=== PATIENT | male | born 1965 | race Hispanic/Latino ===

== ENCOUNTER 2024-12-29 06:04 | Observation (INO) | payer BC ==
[2024-12-25 10:33] VITALS: BP 160/90; PULSE 67; RESP 18; TEMP 97.7
--- NOTE | 2024-12-25 10:40 | NUR ---
RE: IS INITIAL IS INITIAL TEACHING DONE BY RT SENA DURING PREOP.
[~2024-12-29] VITALS: Ht 177.8 cm; Wt 117.7 kg
[2024-12-29] VITALS (29 sets, daily range): BP systolic 104–158; BP diastolic 80–92; PULSE 62–79; RESP 15–20; TEMP 97.1–98; O2SAT 95
[~2024-12-29 06:04] MED LIST: ASPI-1443 PO; ATOR10 PO; HYDR-4060 PO; IBUP-2077 PO; LOSA50TA64 PO
[2024-12-29 06:37] LABS: APPEARANCE,URINE CLEAR (CLEAR); BILIRUBIN,URINE NEGATIVE (NEGATIVE); COLOR,URINE LIGHT-YELLOW (YELLOW); GLUCOSE, URINE (UA) NEGATIVE (NEGATIVE); KETONES,URINE NEGATIVE (NEGATIVE); LEUKOCYTE ESTERASE ,URINE NEGATIVE Leu/uL (NEGATIVE); NITRATE,URINE NEGATIVE (NEGATIVE); PH,URINE 5.5 (5.0-8.0); PROTEIN,URINE NEGATIVE (NEGATIVE); UROBILINOGEN,URINE 0.2 mg/dL (0.2-1.0)
[2024-12-29 06:50] LABS: ADD UA MICROSCOPIC YES
[2024-12-29] MEDS: LACTATED RINGERS 1000ML 1,000 ML IV ONE (06:56)
[2024-12-29] MEDS: ceFAZolin SODIUM 2 GM VIAL ONE (06:56)
[2024-12-29] MEDS ORDERED: VANCOMYCIN 500MG+NS 100ML 100 ML IV ONE (07:04)
[2024-12-29] MEDS ORDERED: TRANEXAMIC ACID 1000MG/10ML ONE (07:04)
[2024-12-29 07:11] LABS: BACTERIA,URINE None Seen /HPF (None Seen); MUCUS,URINE Rare LPF (None Seen)
[2024-12-29] MEDS ORDERED: MIDAZOLAM HCL 1 MG/ML 2ML VIAL ONE (07:26)
[2024-12-29] MEDS ORDERED: proPOFol 10 MG/ML 20ML VIAL IV ONE (07:26)
[2024-12-29] MEDS ORDERED: FENTanyl CITRate PF 50 MCG/1 ML 2ML VIAL ONE ×3 (07:27→12:14)
[2024-12-29] MEDS ORDERED: rocuRONium bROMide 10MG/1ML 5ML VL ONE ×2 (08:08→09:46)
[2024-12-29] MEDS ORDERED: LIDOCAINE 2%-EPI 1:200,000 20 ML VIAL IJ ONE (08:14)
[2024-12-29] MEDS ORDERED: ROPivacaine 0.5% 5MG/ML 30ML ONE (08:14)
[2024-12-29] MEDS ORDERED: ketaMINE 50MG/ML SYRINGE 50 MG/ML DISP.SYRIN ONE (08:15)
[2024-12-29] MEDS ORDERED: phenylEPHRINE HCL 10 MG/ML 1ML VIAL IV ONE (08:17)
[2024-12-29] MEDS: acetaMINOPHEN 100 ML ONE (08:31)
[2024-12-29] MEDS ORDERED: MAGNESIUM SULFATE 1 GM/2 ML VIAL ONE (08:43)
[2024-12-29] MEDS: ceFAZolin SODIUM 1 GM VIAL ONE (09:00)
[2024-12-29] MEDS: VANCOMYCIN 500MG VIAL IJ ONE (09:00)
[2024-12-29] MEDS: ceFAZolin SODIUM 2 GM VIAL IVPB ONE (09:30)
[2024-12-29] MEDS: TRANEXAMIC ACID 1000MG/10ML IV ONE (11:30)
[2024-12-29] MEDS ORDERED: CALCIUM CARB 500MG PO PRN (12:00)
[2024-12-29] MEDS ORDERED: FERROUS FUMARATE 324 MG TABLET PO PRN (12:00)
[2024-12-29] MEDS ORDERED: ondanSETRON 4MG INJ IVP PRN (12:00)
[2024-12-29] MEDS ORDERED: TEMAZepam 15 MG CAPSULE PO PRN (12:00)
[2024-12-29] MEDS ORDERED: DiphenhydrAMINE HCL 50 MG/ML VIAL IVP PRN (12:00)
[2024-12-29] MEDS ORDERED: PoTASSium chl 10% ELIXIR 20MEQ 20 MEQ/15 ML UDCUP PO PRN (12:00)
[2024-12-29] MEDS ORDERED: PoTASSium chloRIDE 20MEQ/100ML 100 ML IV PRN (12:00)
[2024-12-29] MEDS ORDERED: GLYCOPYRROLATE 0.2 MG/ML 5 ML VIAL ONE (12:09)
[2024-12-29] MEDS ORDERED: NEOSTIGMINE METHYLSULFATE 1MG/ML IV ONE (12:10)
--- NOTE | 2024-12-29 12:10 | OP ---
Operative Note: DATE OF PROCEDURE: 12/29/24 SURGEON: KRIS KC MD LATHE SET UP OPERATOR: [Satish Lopez CFA] ANESTHESIA: [General anesthesia plus regional block] ANESTHESIOLOGIST/DIRECTOR OF CRITICAL CARE: [Omar Nava CRNA] PREOPERATIVE DIAGNOSIS: [Left knee osteoarthritis] POSTOPERATIVE DIAGNOSIS: [Same] IMPLANTS: [Biomet vanguard. Femur size 75 left PS. Tibia size 78 fixed cruciate. Tibial liner size 12 x 79/83. Patella size 40 x 10 asymmetric.] PROCEDURE: [Left total knee arthroplasty] ESTIMATED BLOOD LOSS: [100 mL] INDICATIONS: [59-year-old male with history of severe arthrosis to the left knee that has no longer responded to conservative treatment the patient being admitted for a total knee arthroplasty. Procedure understood, risks, benefits and possible complications and agreed signed the consent form] DESCRIPTION OF PROCEDURE: [After adequate general anesthesia was achieved and regional block obtained the left lower extremity was prepped and draped in the usual manner previous placement of the tourniquet in the proximal thigh. The extremity was then elevated and exsanguinated with an Esmarch bandage and the tourniquet inflated to 300 mmHg the Esmarch band been then removed. With the knee in flexion a longitudinal incision was then made in the anterior aspect through the skin followed by dissection of the subcutaneous tissue. A bone infusion needle was then inserted just medial to the tibial tuberosity into the tibial metaphysis and we injected a solution of 50 mL of normal saline mixed with 500 mg of vancomycin removing then the needle. A paramedian approach was then made with the Bovie cautery cutting through the quadriceps tendon, medial patellar retinaculum and patellar tendon retinaculum. The retropatellar tendon fat was then excised and the soft tissue elements of the tibia were elevated subperiosteally and retractors were applied medially and laterally . The anterior and posterior cruciate ligaments were resected. With the use of a drill a starting hole was made in the distal femur entering the intramedullary canal and then after removal of the drill an intramedullary guide was inserted with a 5 degree valgus block that touched the distal femur and to this the distal femoral cutting guide was then applied anteriorly and was secured to the distal femur with the use of pins. The intramedullary guide was then removed and with the use of the oscillating saw we proceeded to resect the distal femur removing the fragments and the guide. The femoral sizer was then applied dis tally and drill holes were made removing the sizer and the 4-in-1 cutting block was then inserted and the anterior, posterior and chamfer cuts were made removing the fragments and the block. The posterior cruciate ligament retractor was then inserted posterior to the tibia and this was brought forward proceeding then to apply the external tibial alignment guide and secured the pro ximal cutting guide to the tibia with the use of pins. With the use of the oscillating saw the proximal cut to the tibia tibia was made. The bone fragment was removed and the trial tibia plate was chosen. At this point the menisci were removed sharply and with the use of the curved osteotome the posterior osteophytes of the femur were removed. The PS cutting guide was then inserted and the intercondylar cut was made removing the fragment and the guide. The trial components were then inserted at the femur and tibia with a trial tibial liner bringing the knee into extension noticing that the patient had a very stable knee in flexion, extension and with valgus and varus stress. The knee was maintained in extension and the patella was then addressed proceeding to measure its thickness and then with the use of the oscillating saw we removed 10 mm from the articular surface and restored the height with application of a trial component after 3 peg holes were made. The patellofemoral ligament was removed and then the patellofemoral tracking was checked noticing to be tracking slightly lateral and for this reason a lateral release was performed bringing the tracking back to normal. At this moment all the components were removed, the tibia after the metaphyseal defect was created and while cement was being mixed on the back table we proceeded to irrigate the joint with antibiotic solution and then cover the entry to the femoral canal with a bone plug. Once the cement was ready we proceeded to apply it first to the tibia surface inserting the final component and then to the femoral surface and inserted the final component removing the excess cement and then applying a trial liner bringing the knee into extension for compression. Then we proceeded to irrigate the patella surface and dried it applying then bone cement and the final patellar component was inserted and was secured with application of a clamp. The joint was irrigated with a warm diluted Betadine solution while the cement dried followed by irrigation with antibiotic solution. The trial liner was removed as well as the patellar clamp and we proceeded then to irrigate the posterior aspect of the joint to remove all the remaining debris and the final tibial liner was inserted and locked against the tibia . The range of motion was checked and noticed to be adequate with full extension and flexion, no laxity in valgus or varus stress and with adequate patellofemoral tracking. The patient had no anterior or posterior drawer. After further irrigation the tour niquet was deflated and then hemostasis was obtained. After further irrigation the wound was then closed with approximation of the quadriceps tendon, patellar retinaculum and patellar tendon retinaculum with #1 Vicryl crossed stitches alternating with #1 and 2 Ethibond stitches, and closure of the subcutaneous tissue with 2-0 Monocryl inverted stitches and the skin was closed with 3-0 Monocryl subcuticularly. The wound was covered with a suction dressing followed by application of an Chris bandage for compression and the drapes were then removed transferring the patient to the hospital bed and taken to recovery room for follow-up by anesthesia. There were no complications during the procedure.] KRIS KC MD Dec 29, 2024 12:10
[2024-12-29] MEDS: MEPERIDINE-PF 50 MG/ML SYG ONE (12:58)
--- NOTE | 2024-12-29 15:20 | NUR ---
Pt is received from the recovery room after having a left knee arthroplasty. The patient is oriented to the room and the use of the call eugene. IV fluids are started at 100 ml's/hr. His is at the bedsides during the admission. PT denies pain. The left knee has a ranjit wrap in place over a BETTY dressing for the surgical incision. Ice is placed on the left knee. The patient is encouraged to call for any needs or concerns. The call eugene is left in reach and the bed in a low position.
[2024-12-29] MEDS: acetaMINOPHEN 500 MG TABLET PO SCH (15:49)
[2024-12-29] MEDS: 0.9%NACL 1000ML 1,000 ML IV SCH (15:50)
[2024-12-29] MEDS: GABApentin 100 MG CAPSULE PO SCH (15:50)
[2024-12-29] MEDS: ceFAZolin SODIUM 2 GM VIAL IVP SCH (16:59)
--- NOTE | 2024-12-29 17:30 | NUR ---
ORTHO COORDINATOR: TEACHING REGARDING DVT AND PNEUMONIA PREVENTION, PAIN EXPECTATIONS AND PAIN MANAGEMENT. PATIENT IN BED, AT BEDSIDE. B SCD SLEEVES IN PLACE AND FUNCTIONING. INCENTIVE SPIROMETER ON BEDSIDE TRAY. PATIENT RETURN DEMONSTRATED PROPER USE OF INCENTIVE SPIROMETER AND FOOT FLEXION/EXTENSION EXERCISES. PATIENT VERBALIZED INCORRECT FREQUENCY OF PERFORMING BREATHING EXERCISES. RE-EDUCATION PROVIDED. BETTY DRESSING INSTRUCTIONS/RATIONALE PROVIDED. CASSETTE FUNCTIONING, LIGHT FLASHING GREEN. ICE PACK TO SURGICAL INCISION. NUMERIC PAIN SCALE REVIEWED. PATIENT INSTRUCTED TO SET AN ALARM FOR EVERY FOUR HOURS AND PERFORM PAIN SELF ASSESSMENT. PATIENT IS TO ASSIGN A NUMERIC VALUE AND TYPE OF PAIN AND CALL PRIMARY NURSE SO APPROPRIATE MEDICATION CAN BE ADMINISTERED. PATIENT INTENDS TO DISCHARGE HOME WITH HOME HEALTH. HOME HEALTH PROCESS REVIEWED. SET EXPECTATION FOR PATIENT TO SHOWER TOMORROW, RATIONALE PROVIDED. PATIENT AND VERBALIZED UNDERSTANDING TO ALL INSTRUCTIONS. NO ADDITIONAL QUESTIONS/CONCERNS AT THIS TIME.
[2024-12-29] MEDS: OXYcodONE HCL 5 MG TAB PO PRN (17:53)
--- NOTE | 2024-12-29 17:56 | NUR ---
Pt has ambulated with PT and the assistance of a walker. He is medicated for pain 5/10 to the left knee. Pt has also voided.
[2024-12-29] MEDS: CYCLOBENZAPRINE HCL 10 MG TABLET PO PRN (19:02)
[2024-12-29] MEDS: ASPIRIN 81 MG EC TAB PO SCH (20:03)
[2024-12-29] MEDS: FAMOTIDINE 20MG TAB PO SCH (20:03)
[2024-12-29] MEDS: CeleCOXib 200 MG CAP PO SCH (20:03)
[2024-12-29] MEDS: LoSARTan 50 MG TABLET PO SCH (20:06)
[2024-12-29] MEDS: ketOROlac 15MG/ML VIAL (15MG/ML) IV PRN (21:13)
[2024-12-30] VITALS: BP 141/100; PULSE 91; RESP 20; TEMP 98.7
[2024-12-30 03:45] LABS: HEMATOCRIT 36.2 % (42-54); MEAN CORPUSCULAR HGB CONC 34.8 g/dL (32.0-36.0); MEAN CORPUSCULAR VOLUME 80.4 fL (79-99); RED BLOOD CELL COUNT(AUTO) 4.5 MIL/uL (4.50-6.20); RED CELL DISTRIBUTION WIDTH 12.7 % (11.0-15.5); WHITE BLOOD COUNT (AUTO) 12.5 K/uL (4.8-10.8)
[2024-12-30 04:00] VITALS: BP 151/90; PULSE 78; RESP 20; TEMP 97.7
[2024-12-30 04:00] LABS: POTASSIUM 3.8 mmol/L (3.5-5.1)
--- NOTE | 2024-12-30 06:24 | NUR ---
Patient up to chair. Tolerated well. Chris wrap removed.
[2024-12-30 07:49] VITALS: BP 149/98; PULSE 81; RESP 18; TEMP 98.1
[2024-12-30] MEDS: atorVAStatin 20 MG TABLET PO SCH (08:02)
[2024-12-30] MEDS: tamSULOsin HCL 0.4 MG CAP.ER.24H PO SCH (08:02)
[2024-12-30] MEDS: PoTASSium chloRIDE 20MEQ ER 20 MEQ ERTAB PO PRN (08:03)
--- NOTE | 2024-12-30 08:04 | PN ---
Ortho postop day one. This morning the patient is awake alert and oriented. is at the bedside. Patient reporting adequate pain control. He is seated in a chair alternating extension and flexion of the extremity on a footstool. The britney dressing is intact. The gastrocnemius a soft nontender. Negative Homans. While seated he is able to get to 0 and flexion to about 70. Distal neurovascular exam normal. Vital signs have been stable. Afebrile. Laboratory results reviewed. Noted to have a drop in hemoglobin and hematocrit as expected after TKA. Patient is currently asymptomatic. We will address per protocol as necessary. Operative findings discussed with the patient. Voiding on his own. Still yet to pass gas. Ambulated yesterday with the physical therapy. Pending further physical therapy this morning. Anticipated discharge goal is home health/PT. Assessment: Status post left TKA. Asymptomatic acute postoperative blood loss anemia addressed with protocol. Plan: Continue with Dr. Bhatti was TKA protocol and discharge planning. Asymptomatic acute postoperative blood loss anemia addressed with the protocol Vitals/Labs Vital Signs Date Time Temp Pulse Resp B/P (MAP) Pulse Ox O2 Delivery O2 Flow Rate FiO2 12/30/24 07:49 98.1 81 18 149/98 99 12/30/24 04:00 Room Air 12/29/24 20:00 0 21 Laboratory Tests 12/30/24 03:22 Medications Current Medications Cefazolin Sodium 2 gm STK-MED ONCE .ROUTE; Start 12/29/24 at 06:14; Stop 12/29/24 at 06:14; Status DC Lactated Ringer's 1,000 ml @ As Directed STK-MED ONCE IV Last administered on 12/29/24at 06:56; Start 12/29/24 at 06:14; Stop 12/29/24 at 06:14; Status DC Tranexamic Acid 1,000 mg STK-MED ONCE .ROUTE; Start 12/29/24 at 07:04; Stop 12/29/24 at 07:04; Status DC Cefazolin Sodium 1 gm STK-MED ONCE .ROUTE Last administered on 12/29/24at 09:00; Start 12/29/24 at 07:04; Stop 12/29/24 at 07:04; Status DC Vancomycin HCl 100 ml @ As Directed STK-MED ONCE IV; Start 12/29/24 at 07:04; Stop 12/29/24 at 07:04; Status DC Propofol 200 mg STK-MED ONCE IV; Start 12/29/24 at 07:26; Stop 12/29/24 at 07:26; Status DC Midazolam HCl 2 mg STK-MED ONCE .ROUTE; Start 12/29/24 at 07:26; Stop 12/29/24 at 07:26; Status DC Fentanyl Citrate 100 mcg STK-MED ONCE .ROUTE; Start 12/29/24 at 07:27; Stop 12/29/24 at 07:27; Status DC Rocuronium [place] 50 mg STK-MED ONCE .ROUTE; Start 12/29/24 at 08:08; Stop 12/29/24 at 08:08; Status DC Ropivacaine 150 mg STK-MED ONCE .ROUTE; Start 12/29/24 at 08:14; Stop 12/29/24 at 08:14; Status DC Lidocaine/ Epinephrine 20 ml STK-MED ONCE IJ; Start 12/29/24 at 08:14; Stop 12/29/24 at 08:14; Status DC Ketamine HCl 50 mg STK-MED ONCE .ROUTE; Start 12/29/24 at 08:15; Stop 12/29/24 at 08:15; Status DC Phenylephrine HCl 10 mg STK-MED ONCE IV; Start 12/29/24 at 08:17; Stop 12/29/24 at 08:18; Status DC Acetaminophen 100 ml @ As Directed STK-MED ONCE .ROUTE; Start 12/29/24 at 08:31; Stop 12/29/24 at 08:31; Status DC Magnesium Sulfate 1 gm STK-MED ONCE .ROUTE; Start 12/29/24 at 08:43; Stop 12/29/24 at 08:43; Status DC Rocuronium [place] 50 mg STK-MED ONCE .ROUTE; Start 12/29/24 at 09:46; Stop 12/29/24 at 09:46; Status DC Vancomycin HCl 500 mg STK-MED ONCE IJ Last administered on 12/29/24at 09:00; Start 12/29/24 at 09:00; Stop 12/29/24 at 10:30; Status DC Cefazolin Sodium 2 gm STK-MED ONCE IVPB Last administered on 12/29/24at 09:30; Start 12/29/24 at 09:30; Stop 12/29/24 at 10:34; Status DC Tranexamic Acid 1,000 mg STK-MED ONCE IV Last administered on 12/29/24at 09:30; Start 12/29/24 at 09:30; Stop 12/29/24 at 10:34; Status DC Fentanyl Citrate 100 mcg STK-MED ONCE .ROUTE; Start 12/29/24 at 11:28; Stop 12/29/24 at 11:28; Status DC Tranexamic Acid 1,000 mg STK-MED ONCE IV Last administered on 12/29/24at 11:30; Start 12/29/24 at 11:30; Stop 12/29/24 at 11:33; Status DC Sodium Chloride 1,000 ml @ 100 mls/hr Q10H IV Last administered on 12/29/24at 15:50; Start 12/29/24 at 12:00; Stop 12/30/24 at 11:59 Polyethylene Glycol 17 gm DAILY PO; Start 12/30/24 at 09:00; Stop 01/29/25 at 08:59 Bisacodyl 10 mg DAILY PRN RC; Start 01/01/25 at 12:00; Stop 01/31/25 at 11:59 Ketorolac Tromethamine 15 mg Q6H PRN IV Last administered on 12/29/24at 21:13; Start 12/29/24 at 12:00; Stop 01/03/25 at 11:59 Famotidine 20 mg BID PO Last administered on 12/29/24at 20:03; Start 12/29/24 at 21:00; Stop 01/28/25 at 20:59 Tamsulosin HCl 0.4 mg DAILY PO; Start 12/30/24 at 09:00; Stop 01/29/25 at 08:59 Ferrous Fumarate 324 mg DAILY PRN PO; Start 12/29/24 at 12:00; Stop 01/28/25 at 11:59 Temazepam 15 mg HS PRN PO; Start 12/29/24 at 12:00; Stop 01/28/25 at 11:59 Ondansetron HCl 4 mg Q6H PRN IVP; Start 12/29/24 at 12:00; Stop 01/28/25 at 11:59 Calcium Carbonate 500 mg Q12H PRN PO; Start 12/29/24 at 12:00; Stop 01/28/25 at 11:59 Diphenhydramine HCl 25 mg Q6H PRN IVP; Start 12/29/24 at 12:00; Stop 01/28/25 at 11:59 Cefazolin Sodium 2 gm Q8H IVP Last administered on 12/30/24at 01:28; Start 12/29/24 at 17:00; Stop 12/30/24 at 01:01; Status DC Cyclobenzaprine HCl 5 mg Q8H PRN PO Last administered on 12/29/24at 19:02; Start 12/29/24 at 12:00; Stop 01/28/25 at 11:59 Gabapentin 100 mg TID PO Last administered on 12/29/24at 20:11; Start 12/29/24 at 14:00; Stop 01/28/25 at 13:59 Potassium Chloride 100 ml @ 100 mls/hr AD PRN IV; Start 12/29/24 at 12:00; Stop 01/28/25 at 11:59 Potassium Chloride 20 meq AD PRN PO; Start 12/29/24 at 12:00; Stop 01/28/25 at 11:59 Potassium Chloride 20 meq AD PRN PO; Start 12/29/24 at 12:00; Stop 01/28/25 at 11:59 Celecoxib 200 mg BID PO Last administered on 12/29/24at 20:03; Start 12/29/24 at 21:00; Stop 01/28/25 at 20:59 Oxycodone HCl 5 mg Q4H PRN PO Last administered on 12/30/24at 03:43; Start 12/29/24 at 12:00; Stop 01/05/25 at 11:59 Oxycodone HCl 10 mg Q4H PRN PO; Start 12/29/24 at 12:00; Stop 01/05/25 at 11:59 Tramadol HCl 50 mg Q6H PRN PO; Start 12/29/24 at 12:00; Stop 01/03/25 at 11:59 Acetaminophen 1,000 mg Q8H PO Last administered on 12/29/24at 15:49; Start 12/29/24 at 12:00; Stop 01/01/25 at 11:59 Aspirin 81 mg BID PO Last administered on 12/29/24at 20:03; Start 12/29/24 at 21:00; Stop 01/28/25 at 20:59 Glycopyrrolate 1 mg STK-MED ONCE .ROUTE; Start 12/29/24 at 12:09; Stop 12/29/24 at 12:10; Status DC Neostigmine Methylsulfate 10 mg STK-MED ONCE IV; Start 12/29/24 at 12:10; Stop 12/29/24 at 12:10; Status DC Fentanyl Citrate 100 mcg STK-MED ONCE .ROUTE; Start 12/29/24 at 12:14; Stop 12/29/24 at 12:14; Status DC Meperidine HCl 50 mg STK-MED ONCE .ROUTE Last administered on 12/29/24at 12:58; Start 12/29/24 at 12:55; Stop 12/29/24 at 12:56; Status DC Atorvastatin Calcium 20 mg DAILY PO; Start 12/30/24 at 09:00; Stop 01/29/25 at 08:59 Losartan Potassium 50 mg BID PO; Start 12/29/24 at 21:00; Stop 01/28/25 at 20:59 WILTON ARIAS NP Dec 30, 2024 08:04
[2024-12-30] MEDS: OXYcodONE HCL 5 MG TAB PO PRN (08:05)
[2024-12-30] MEDS: polyETHYLene GLYCol 3350 17 GM POWD.PACK PO SCH (08:14)
[2024-12-30 08:18] VITALS: O2SAT 99
--- NOTE | 2024-12-30 11:00 | NUR ---
[facility] CM MET WITH PT THIS INITIAL ASSESSMENT DONE. PATIENT IS INDEPENDENT PRIOR TO SURGERY, LIVES AT HOME WITH HIS . PATIENT HAS A WORKING STANDARD WALKER, SHOWER CHAIR, BPM AT HOME. DENIES ANY OTHER EQUIPMENT/SERVICES. FEELS SAFE TO GO BACK HOME, STILL WORK AND DRIVE, ABLE TO ASSIST WITH TRANSPORTATION AND NEEDS NECESSARY. DISCUSSED MD RECOMMENDATIONS FOR HOME W/HH, PT AGREEABLE, CONSENT SIGNED ANDREW FOR [facility]/ANY IN [facility]. [facility] HOME W/HH ONCE APPROVED. CM TO CONTINUE TO FOLLOW UP. Addendum: 12/30/24 at 1430 by SUBHASH SALINAS LVN Amended: Links added.
[2024-12-30 11:39] VITALS: BP 130/84; PULSE 89; RESP 16; TEMP 98.4
[2024-12-30] MEDS: traMADol HCL 50 MG TABLET PO PRN (16:20)
--- NOTE | 2024-12-30 16:45 | NUR ---
ORTHO COORDINATOR: REINFORCED TEACHING.
[2024-12-30] MEDS ORDERED: ASPI-1443 PO (17:51)
[2024-12-30] MEDS ORDERED: OXYC-38 PO (17:51)
--- NOTE | 2024-12-30 20:05 | NUR ---
DISCHARGED PT WAS EDUCATED ON PAIN MANAGEMENT W W/O OPIOIDS. BETTY DRESSING WAS CHANGED & IV SITE WAS REMOVED W/O COMPLICATIONS. PT DENIED NEEDING FURTHER ASSISTANCE. CLINICAL RESOURCE NURSE IS CURRENTLY TRANSPORTING PT TO THE MAIN ENTRANCE WITH NO S/S OF DISTRESS.
[2025-01-01] MEDS ORDERED: BisaCODYL 10 MG SUPP.RECT RC PRN (12:00)
== END 2024-12-30 20:10 | disposition home or self-care (01) ==
LOC: DAH 06:04 → DAHIP 06:05 → 4AH 15:25
PROVIDERS: ADMIT Orthopaedic Surgery; ATTEND Orthopaedic Surgery
DX: M17.12 Unilateral primary osteoarthritis, left knee (principal); G89.18 Other acute postprocedural pain; I10 Essential (primary) hypertension; E78.5 Hyperlipidemia, unspecified; E66.01 Morbid (severe) obesity due to excess calories; Z79.899 Other long term (current) drug therapy; Z68.37 Body mass index [BMI] 37.0-37.9, adult
CPT/HCPCS: 87641; 27447; 96365; 96375; 64447; 87086; 81001; 88311; 88305; 97161; 97116 ×3; 97530 ×4; 96366; 80048; 85027; 36415; G0378 ×32; A4663; J7120 ×2; A4600; J3010 ×3; J0690 ×5; J3490 ×8; J3475; J2250; J2704; J2710; J2175; J2795; J1885; J2371; J3370 ×2; A9272; A4649 ×4; A4930 ×3; C1713; C1776; A4215; A4223 ×2; A4222; A4221; A4216